=== PATIENT | female | born 1995 ===

== ENCOUNTER 2022-06-29 12:44 | Outpatient (CLI) | payer OTHER | END 2022-06-29 14:03 | disposition home or self-care (01) | LOC: PRENATAL 12:44 | PROVIDERS: ATTEND Obstetrics & Gynecology Maternal & Fetal Medicine | DX: O35.9XX0 Maternal care for (suspected) fetal abnormality and damage, unspecified, not applicable or unspecified (principal); O35.3XX0 Maternal care for (suspected) damage to fetus from viral disease in mother, not applicable or unspecified; Z3A.20 20 weeks gestation of pregnancy ==

== ENCOUNTER 2022-10-24 11:05 | Inpatient (IN) | payer OTHER ==
[~2022-10-24] VITALS: Ht 154.9 cm; Wt 71.7 kg
[2022-11-09] MEDS ORDERED: PRENATAL TABLE1 EAC6 PO (07:46)
[2022-11-09] MEDS ORDERED: FOLIC ACID0.8 MG PO (07:46)
== END 2022-11-11 15:23 | disposition home or self-care (01) | DRG 807 ==
LOC: OB/GYN 11-09 07:27 → LDR 11-09 07:27 → OB/GYN 11-09 10:21
PROVIDERS: ADMIT Obstetrics & Gynecology; ATTEND Obstetrics & Gynecology
PROC: 10E0XZZ Delivery of Products of Conception, External Approach (ICD-10-PCS; principal; 2022-11-09)
PROC: 0UQG7ZZ Repair Vagina, Via Natural or Artificial Opening (ICD-10-PCS; 2022-11-09)
PROC: 4A1HXCZ Monitoring of Products of Conception, Cardiac Rate, External Approach (ICD-10-PCS; 2022-11-09)
DX: O71.4 Obstetric high vaginal laceration alone (principal); Z37.0 Single live birth; Z3A.39 39 weeks gestation of pregnancy; Z20.822 Contact with and (suspected) exposure to COVID-19